=== PATIENT | male | born 1965 | race Two or more races ===

== ENCOUNTER 2018-08-31 19:53 | Emergency (ER) | payer MEDICAID ==
[~2018-08-31] VITALS: Ht 160 cm; Wt 88.5 kg
--- NOTE | 2018-08-31 20:13 | NUR ---
ER Nurse Note: Pt came from home c/o redness, flat skin rash distrubted on bilateral arms, chest, and upper back. Pt stated he noticed the rash on 08/29 after he went for a walk. Pt states 2/10 pain, slight itchiness. Skin intact. 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 Pt a&ox4, VSS, no signs of distress. Will continue to monitor.
[2018-08-31 20:20] VITALS: BP 144/81
--- NOTE | 2018-08-31 20:56 | Emergency Room Report ---
History of Present Illness General Chief Complaint: Skin Rash/Abscess Source: Patient Present Illness HPI This patient complains of an itchy rash that started 3 days ago. He denies recent illness. He denies any new contacts. He denies fever or chills. He denies sore throat. He denies travel. He has no other complaints. Allergies: Coded Allergies: No Known Allergies (Unverified , 08/31/18) Patient History Past Medical History: none, see triage record Past Surgical History: none Social History: Denies: smoking, alcohol use, drug use Reviewed Nursing Documentation: PMH: Agreed; PSxH: Agreed Nursing Documentation-PMH Past Medical History: No Stated History Review of Systems All Other Systems: negative except mentioned in HPI Physical Exam Vital Signs Date Time Temp Pulse Resp B/P (MAP) Pulse Ox O2 Delivery O2 Flow Rate FiO2 08/31/18 19:57 98.2 80 14 144/81 (102) 95 Room Air Sp02 EP Interpretation: reviewed, normal General Appearance: no apparent distress, alert, GCS 15, non-toxic Head: normocephalic, atraumatic Eyes: bilateral eye normal inspection, bilateral eye PERRL ENT: hearing grossly normal, normal pharynx, no angioedema, normal voice Neck: full range of motion, supple/symm/no masses Respiratory: chest non-tender, lungs clear, normal breath sounds, no respiratory distress, no retraction, no accessory muscle use, speaking full sentences Cardiovascular #1: regular rate, rhythm, no edema Gastrointestinal: normal bowel sounds, non tender, soft, non-distended, no guarding, no rebound Rectal: deferred Musculoskeletal: back normal, gait/station normal, normal range of motion, non- tender Neurologic: alert, oriented x3, responsive, motor strength/tone normal, sensory intact, speech normal Psychiatric: judgement/insight normal, memory normal, mood/affect normal, no suicidal/homicidal ideation Skin: warm/dry, well hydrated, rash - Diffuse erythematous rash along skin lines, raised. Primarily trunk with extension to arm and upper legs. Medical Decision Making Diagnostic Impression: Primary Impression: Rash and other nonspecific skin eruption ER Course I suspect this is a viral exanthem. This could be viral urticaria. Also possibility of allergic reaction and hives. Especially given the pruritus. Although this is not a classic presentation of hives. The patient was given oral Benadryl. There is no evidence of anaphylaxis or other serious medical condition. I am unsure of the exact etiology. Regardless, the patient has no evidence of an emergency medical condition. This is not consistent with measles or other epidemic condition. The patient is instructed to follow-up with the primary care physician. He is given close return precautions and follow-up instructions. Last Vital Signs Date Time Temp Pulse Resp B/P (MAP) Pulse Ox O2 Delivery O2 Flow Rate FiO2 08/31/18 20:20 98.2 80 14 144/81 95 Room Air Status: improved Disposition: HOME, SELF-CARE Condition: Improved Scripts No Active Prescriptions or Reported Meds Patient Instructions: Riri Galeana DO Aug 31, 2018 20:56
[2018-08-31] MEDS ORDERED: BENADRYL25 MG ORAL (20:59)
[2018-08-31 21:10] VITALS: BP 144/81
--- NOTE | 2018-08-31 21:10 | NUR ---
ER Nurse Note: All orders completed per ERMD orders. Pt seen, treated, medically cleared for discharge by ERMD. Discharge instructions and prescriptions given with repeat verbazliaion by pt. Instructed pt to follow up with primary care provider. Pt a&ox4, VSS, no signs of distress. ID band removed. Pt left with all belongings with steady gait via own transportation.
== END 2018-08-31 21:10 | disposition home or self-care (01) ==
LOC: EMR 20:31
DX: R21 Rash and other nonspecific skin eruption (principal)
CPT/HCPCS: 99282